=== PATIENT | male | born 1975 | race Caucasian/White ===

== ENCOUNTER 2016-10-03 23:31 | Inpatient (IN) | payer BC ==
--- NOTE | ~2016-10-03 | DS ---
Unit #: [id number] #: [id number] Patient: LALIT CARSON [id number] [address] [place], [place] [address] [id number] I MR#: [id number] NAME: LALIT CARSON ROOM: 462 Age: 41 Sex: M Admission Date: 10/04/2016 : 1975 Discharge Date: 10/06/2016 Attending Physician: Silvestre Potts Jr., M.D. DISCHARGE SUMMARY HISTORY AND HOSPITAL COURSE Mr. Gallegos is a 41-year-old gentleman, who presenting to the ER with an abscess in the anterior abdominal wall associated with his panniculus. He had some associated cellulitis and was started on IV antibiotics. He was taken to the operating room by Dr. Renteria, who did incision, drainage, and debridement. Postoperatively, dressing changes were initiated and he was taught dressing changes. His cellulitis resolved. His wound was beginning to granulate and there was no purulent drainage or bleeding. The patient was competent with dressing changes. The VNA will see him for home wound followup. He will be discharged home today in stable condition and instructions to undergo diet and activity as tolerated. He may shower and use a laxative as needed. He is to continue current dressing changes twice a day at home. Prescription for Percocet was left for pain control. He is to call [phone] for followup appointment with Dr. Renteria in 1 week. Dictated by... Jozef Eagle/ayse TD: 10/06/2016 22:38 JOB #: [id number] DISCHARGE SUMMARY X Chago Moore MD X DISCHARGE SUMMARY
--- NOTE | ~2016-10-03 | HP ---
Unit #: [id number] #: [id number] Patient: LALIT CARSON [id number] [facility]. [place], [place] [address] [id number] I MR#: [id number] NAME: LALIT CARSON ROOM: 462 Age: 41 Sex: M Admission Date: 10/04/2016 : 1975 Attending Physician: Silvestre Potts Jr., M.D. Primary Care Physician: No Primary Care Physician HISTORY AND PHYSICAL CHIEF COMPLAINT Abdominal wall abscess. HISTORY OF PRESENT ILLNESS This is a 41-year-old gentleman who for about the last week has had a progressively enlarging abscess in the suprapubic region. It started off just hard and increasingly became more tender and developed some redness. He stated that it ruptured and he went to the ER last night to have it drained. He had an appointment to see Dr. Potts in the office today. PAST MEDICAL HISTORY Negative. PAST SURGICAL HISTORY He has had a tonsillectomy and he has had a left groin abscess incised and drained in the past. ALLERGIES He has no known drug allergies. MEDICATIONS He is on no medications. SOCIAL HISTORY He does smoke. He denies any alcohol use. FAMILY HISTORY Negative for cancer. REVIEW OF SYSTEMS Negative for fevers or weight loss and otherwise was reviewed in the nurses notes. PHYSICAL EXAMINATION VITAL SIGNS: Temperature is 98.2, heart rate is 89, respiratory rate 16, blood pressure 144/77. GENERAL: He is obese. He is in no acute distress. HEENT: Pupils equal, round, reactive to light and accommodation. Extraocular muscles are intact. NECK: Without masses or bruits. LUNGS: Good breath sounds bilaterally with equal air exchange. CARDIAC EXAM: Regular rate and rhythm without murmur. ABDOMEN: Soft, nondistended and he is obese. He has an orange sized Unit #: [id number] #: [id number] Patient: LALIT CARSON suprapubic abscess. It is erythematous and indurated and has two small puncture sites from where it was lanced and there is some drainage on the gauze. EXTREMITIES: Without edema or cyanosis. NEUROLOGICAL: He is alert and oriented. There are no focal deficits. DIAGNOSTIC STUDIES LABORATORY: White blood count is 10,000. Hemoglobin is 14. Glucose is 126. IMPRESSION This is a 41-year-old gentleman who has a suprapubic abscess. It needs to be incised and drained. We described the risks and benefits and he understands those and wishes to proceed. 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 Dictated by Michael Solo III, M.D. VCL/chandler TD: 10/04/2016 07:32 JOB #: [id number] HISTORY AND PHYSICAL X Michael Solo III, MD HISTORY AND PHYSICAL
--- NOTE | ~2016-10-03 | BMI ---
[facility] Nutrition Therapy DATE: 10/04/16 Patient: LALIT CARSON Physician: TAMIKA Address: [address] [place] [address] Room/Bed: [address] [place] [address], Zip: [place] [address] Admit Date: 10/04/16 Date of : [birth year] Height: 5 10 Weight: 314 142.8 HIGH BMI NOTE: DX: 41 yo male admitted for an abcess on lower abdominal wall ANTHROPOMETRICS: HT: 5'10", WT: 142.8 kg, BMI: 45.2 DIET: NPO INTERVENTION: 1. NPO RECOMMENDATIONS: 1. Once medically feasible, advance diet as indicated to HH to promote gradual weight loss towards healthy BMI. RD will f/u per protcol. Respectfully, DONAVON NAJERA, [employer] Technical Assistant Maryann Laura MS, RD, LD [facility] Nutrition[facility] cc: client file
--- NOTE | ~2016-10-03 | OR ---
Unit #: [id number] #: [id number] Patient: LALIT CARSON [id number] [address] [place], [place] [address] [id number] I MR#: [id number] NAME: LALIT CARSON ROOM: 462 Date of Procedure: 10/04/2016 Admission Date: 10/04/2016 Surgeon: Rich Renteria M.D. : 1975 Attending Physician: Silvestre Potts Jr., M.D. Primary Care Physician: Primary Care Physician No OPERATIVE REPORT PREOPERATIVE DIAGNOSIS Necrotic abscess, suprapubic area. POSTOPERATIVE DIAGNOSIS Necrotic abscess, suprapubic area. PROCEDURE PERFORMED Sharp excisional debridement of necrotic abscess, suprapubic area 15 x 10 cm. ANESTHESIA General LMA anesthesia with 0.5% Marcaine plain local anesthesia. FINDINGS The area was consistent with a necrotic abscess. Sharp excisional debridement of skin and subcutaneous tissue was performed. ESTIMATED BLOOD LOSS Minimal. FLUIDS 1000 mL of crystalloid. DRAINS None. TUBES None. SPECIMENS Sent to pathology and microbiology. COMPLICATIONS None apparent. CONDITION The patient tolerated the procedure well. INDICATIONS FOR PROCEDURE The patient is a 41-year-old white male, who developed an abscess in the suprapubic area as well as his lower panniculus. It became increasingly painful. He developed purulent drainage. He came to the emergency room Unit #: [id number] #: [id number] Patient: LALIT CARSON for evaluation. He has some area of central necrosis. He presents at this time for sharp excisional debridement. DESCRIPTION OF PROCEDURE After obtaining informed consent as well as receiving scheduled antibiotics, the patient was brought to the operating room and after adequate general LMA anesthesia was obtained, his abdomen and suprapubic area prepped and draped in a sterile fashion. An incision was made around the necrotic cellulitic wound draining purulent material in the lower abdomen. It involved the lower part of the panniculus and the suprapubic area. It was taken down through the subdermal tissues and subcutaneous tissues with electrocautery with good hemostasis. The area was excised circumferentially with a scalpel followed by hemostasis with the Bovie. The wound was irrigated. All areas were infiltrated with 0.5% Marcaine plain local anesthesia. The wound was packed with a saline soaked fluffs followed by a dry dressing and tape. Needle counts, sponge counts, and instrument counts were all correct as reported by the scrub nurse x2. The patient went from the operating room to the recovery room in stable condition. Dictated by.Jeison. Jozef Cabrera/ayse TD: 10/04/2016 23:50 JOB #: [id number] CC: [facility] OPERATIVE REPORT X Rich Renteria MD X PROCEDURE OPERATIVE NOTE
[~2016-10-03 23:31] MED LIST: ANTIFUNGAL30 G2 TP; AUGMENTIN PO; BACTRIM DS TABL1 TA1 PO; GLUCOPHAGE500 MG PO; KEFLEX500 M1 PO; KEFLEX500 M2 PO; LOTRIMIN 1% CR30 GM EXT; NO MEDICATIONS; PEN-VEE K PO; PERCOCET5/325 PO; PROVENTIL0.83 MG/ML IH
[2016-10-04 00:02] LABS: BASOPHIL# 0.1 X10e3 (0-0.3); BASOPHIL% 1.2 % (0-2.5); EOSINOPHIL# 0.2 X10e3 (0-0.7); EOSINOPHIL% 2.4 % (0.0-7.0); HEMATOCRIT 43.3 % (38.0-50.0); HEMOGLOBIN 14.4 gm/dL (13.0-16.0); LYMPHOCYTE# 1.8 X10e3 (1.0-3.5); LYMPHOCYTE% 16.5 % (17.0-45.0); MEAN CELL VOLUME 91.5 FL (83-96); MEAN CORPUSCULAR HEMOGLOBIN 30.4 PG (28-34); MEAN CORPUSCULAR HGB CONC 33.2 g/dL (30-36); MONOCYTE# 0.5 X10e3 (0-1.0); MONOCYTE% 5.1 % (3.0-12.0); NEUTROPHIL# 7.9 X10e3 (1.5-7.1); NEUTROPHIL% 74.8 % (40-75); PLATELET COUNT 204 X10e3 (140-420); RED BLOOD COUNT 4.73 X10e (3.90-5.60); RED CELL DISTRIBUTION WIDTH 14.1 % (11.0-15.5); WHITE BLOOD COUNT 10.6 X10e3 (4.0-10.5)
[2016-10-04 00:05] LABS: DIFF IND NO
[2016-10-04 00:38] LABS: BLOOD UREA NITROGEN 10 mg/dL (9-23); BUN/CREATININE RATIO 11.11; CALCIUM SERUM 9.1 mg/dL (8.4-10.2); CARBON DIOXIDE 31 mmol/L (22-31); CHLORIDE 97 mmol/L (100-111); CREATININE SERUM 0.9 mg/dL (0.6-1.4); GLOM FILT RATE Estimated ABOVE60 mL/min (>60); GLUCOSE FASTING 126 mg/dL (70-110); POTASSIUM 4.1 mmol/L (3.5-5.1); SODIUM 135 mmol/L (135-145)
[2016-10-04 01:14] LABS: PARTIAL THROMBOPLASTIN TIME 28.9 SECONDS (23.5-31.3)
[2016-10-05 04:27] LABS: BLOOD UREA NITROGEN 12 mg/dL (9-23); CREATININE SERUM 0.9 mg/dL (0.6-1.4); GLOM FILT RATE Estimated ABOVE60 mL/min (>60)
[2016-10-06] MEDS ORDERED: ACETAMINOPHEN325 MG PO (11:39)
[2016-10-06] MEDS ORDERED: PERCOCET 7.5-31 EACH PO (11:40)
[2016-10-06] MEDS ORDERED: DAKIN'S473 M1 MC (11:41)
== END 2016-10-06 12:01 | disposition home health service (06) | DRG 572 ==
LOC: CED 23:31 → CEDOF 10-04 00:53 → C4C 10-04 02:05
PROVIDERS: Emergency Medicine; Surgery
PROC: 0JB80ZZ Excision of Abdomen Subcutaneous Tissue and Fascia, Open Approach (ICD-10-PCS; principal; 2016-10-04 13:00)
DX: L02.211 Cutaneous abscess of abdominal wall (principal); E66.01 Morbid (severe) obesity due to excess calories; F17.210 Nicotine dependence, cigarettes, uncomplicated; L03.311 Cellulitis of abdominal wall
CPT/HCPCS: 10060; 36415; 80048; 80202; 82565; 84520; 85025; 85610; 85730; 87070; 87075; 87076; 87186; 87205; 88304; 96374; 96375; 99285; J0330; J1170; J1650; J2250; J2270; J2405; J2543; J2710; J3010; J3370